=== PATIENT | female | born 1970 | race Caucasian/White ===

== ENCOUNTER 2016-02-11 22:04 | Emergency (ER) | payer SELFPAY ==
[~2016-02-11] VITALS: Wt 59.0 kg
[~2016-02-11 22:04] MED LIST: ABILIFY10 MG PO; ABILIFY2 MG PO; ANAPROX DS550 MG PO; ASPIR LOW81 MG PO; ASPIR-TRIN325 MG PO; ATARAX25 MG PO; CEPHALEXIN500 M1 PO; DAILY VITAMIN1 EAC2 PO; EFFEXOR XR150 M1 PO; ELIMITE 5%60 GM T; KLONOPIN0.5 MG PO; MEDROL DOSEPAK4 MG PO; NORVASC5 MG PO; PHENERGAN W/DM120 ML PO; PLAVIX75 MG PO; PREDNICOT10 MG PO; PREDNICOT20 MG PO; PROAIR HFA0.09 MG/AC INH
== END 2016-02-11 23:54 | disposition home or self-care (01) ==
LOC: ED 22:04
DX: M79.671 Pain in right foot (principal); F17.200 Nicotine dependence, unspecified, uncomplicated; Z86.73 Personal history of transient ischemic attack (TIA), and cerebral infarction without residual deficits; Z79.82 Long term (current) use of aspirin; Z98.890 Other specified postprocedural states

== ENCOUNTER 2016-02-13 12:07 | Emergency (ER) | payer SELFPAY ==
[~2016-02-13] VITALS: Ht 165.1 cm; Wt 56.7 kg
[2016-02-13] MEDS ORDERED: Motrin,Rufen800 MG PO (13:34)
== END 2016-02-13 13:43 | disposition home or self-care (01) ==
LOC: ED 12:07
DX: M72.2 Plantar fascial fibromatosis (principal); F17.200 Nicotine dependence, unspecified, uncomplicated; Z79.82 Long term (current) use of aspirin

== ENCOUNTER 2016-05-08 01:52 | Emergency (ER) | payer MEDICAID ==
[~2016-05-08] VITALS: Ht 165.1 cm; Wt 49.9 kg
[~2016-05-08 01:52] MED LIST changes: +Motrin,Rufen800 MG PO
[2016-05-08] MEDS ORDERED: COUMADIN5 M2 PO (02:00)
[2016-05-08] MEDS ORDERED: PLAVIX75 M1 PO (02:01)
[2016-05-08] MEDS ORDERED: NEURONTIN100 MG PO (02:01)
[2016-05-08] MEDS ORDERED: MIRALAX POWDER255 G1 PO (02:02)
[2016-05-08] MEDS ORDERED: COLACE100 MG PO (02:02)
[2016-05-08 02:21] LABS: BILIRUBIN NEGATIVE (NEGATIVE); BLOOD NEGATIVE (NEGATIVE); CLARITY CLEAR (CLEAR); COLOR YELLOW (YELLOW); GLUCOSE NEGATIVE (NEGATIVE); KETONE NEGATIVE (NEGATIVE); LEUKO ESTERASE TRACE (NEGATIVE); NITRITE NEGATIVE (NEGATIVE); PH 5.5 (5.0-9.0); PROTEIN NEGATIVE (NEGATIVE); SPECIFIC GRAVITY <= 1.005 (1.005-1.030); UROBILINOGEN 0.2 E.U./dl (0.2-1.0)
[2016-05-08 02:28] LABS: BACTERIA 2+; URINE REFLEX COMMENT YES (NO)
[2016-05-08 02:31] LABS: URINE AMPHETAMINES < 1000 (1000ng/ml); URINE BARBITURATES < 200 (200ng/ml); URINE COCAINE < 300 (300ng/ml)
[2016-05-08 02:50] LABS: ALBUMIN 3.8 gm/dl (3.1-4.5); ALKALINE PHOSPHATASE 90 U/L (45-117); BUN 11 mg/dl (7-24); CARBON DIOXIDE 25 mmol/L (21-32); CHLORIDE 110 mmol/L (98-107); EST GLOM FILT AFRICAN AMERICAN > 60 ml/min; GLUCOSE 94 mg/dL (65-99); POTASSIUM 3.7 mmol/L (3.5-5.1); SGOT/AST 16 IU/L (3-35); SGPT/ALT 19 U/L (12-78); SODIUM 144 mmol/L (136-145); TOTAL PROTEIN 7.4 gm/dL (6.4-8.2)
[2016-05-08 02:51] LABS: BILIRUBIN, TOTAL < 0.1 mg/dl (0.2-1.0)
[2016-05-08] MEDS ORDERED: PERCOCET 325 MG1 TA7 PO (03:18)
== END 2016-05-08 03:45 | disposition home or self-care (01) ==
LOC: ED 01:52
PROVIDERS: Emergency Medicine Emergency Medical Services
DX: G89.18 Other acute postprocedural pain (principal); F41.9 Anxiety disorder, unspecified; I77.9 Disorder of arteries and arterioles, unspecified; F17.200 Nicotine dependence, unspecified, uncomplicated; Z79.02 Long term (current) use of antithrombotics/antiplatelets; Z79.899 Other long term (current) drug therapy; Z86.73 Personal history of transient ischemic attack (TIA), and cerebral infarction without residual deficits

== ENCOUNTER 2016-05-16 23:17 | Emergency (ER) | payer OTHER ==
[~2016-05-16] VITALS: Ht 165.1 cm; Wt 50.8 kg
[~2016-05-16 23:17] MED LIST changes: +COLACE100 MG PO; +COUMADIN5 M2 PO; +MIRALAX POWDER255 G1 PO; +NEURONTIN100 MG PO; +PERCOCET 325 MG1 TA7 PO; +PLAVIX75 M1 PO
[2016-05-16] MEDS ORDERED: HYDROXYZINE HCL25 M1 PO (23:31)
[2016-05-17] MEDS ORDERED: RESTORIL15 MG PO (00:14)
== END 2016-05-17 00:29 | disposition home or self-care (01) ==
LOC: ED 23:17
DX: F11.23 Opioid dependence with withdrawal (principal); F41.9 Anxiety disorder, unspecified; F17.200 Nicotine dependence, unspecified, uncomplicated; Z79.02 Long term (current) use of antithrombotics/antiplatelets; Z79.899 Other long term (current) drug therapy; Z86.73 Personal history of transient ischemic attack (TIA), and cerebral infarction without residual deficits

== ENCOUNTER → 2016-07-18 | Outpatient (CLI) | payer OTHER ==
[~2016-07-18] MED LIST changes: +HYDROXYZINE HCL25 M1 PO; +RESTORIL15 MG PO
[2016-07-18 13:50] LABS: BASO # 0.1 10*3/uL (0.0-0.1); BASO % 0.7 % (0.0-1.0); EOS # 0.3 10*3/uL (0.0-0.4); EOS % 3.2 % (1.0-4.0); HEMATOCRIT 43.5 % (37.0-47.0); HEMOGLOBIN 13.6 g/dl (12.0-16.0); IG # 0.1 10*3/uL (0.0-0.1); LYMPH # 3.5 10*3/uL (1.3-4.4); LYMPH % 37.8 % (27.0-41.0); MEAN CELL VOLUME 78.8 fl (81.0-99.0); MEAN CORPUSCULAR HGB 24.6 pg (27.0-31.0); MEAN CORPUSCULAR HGB CONC 31.3 g/dl (33.0-37.0); MEAN PLATELET VOLUME 9.4 fl (9.6-12.3); MONO # 0.8 10*3/uL (0.1-1.0); MONO % 8.7 % (3.0-9.0); NEUT # 4.5 10*3/uL (2.3-7.9); NEUT % 48.4 % (47.0-73.0); PLATELET COUNT AUTOMATED 642 10*3/uL (130-400); RED BLOOD COUNT 5.52 10*6/uL (4.10-5.10); RED CELL DISTRI WIDTH 22.3 % (0-14.5); WHITE BLOOD COUNT 9.3 10*3/uL (4.8-10.8)
== END | disposition home or self-care (01) ==
LOC: LAB 13:33
PROVIDERS: Internal Medicine Hematology & Oncology
DX: D75.9 Disease of blood and blood-forming organs, unspecified (principal)

== ENCOUNTER 2017-02-26 10:17 | Emergency (ER) | payer OTHER ==
[~2017-02-26] VITALS: Ht 165.1 cm; Wt 59.9 kg
[2017-02-26] MEDS ORDERED: PREDNISONE10 MG PO (10:38)
[2017-02-26] MEDS ORDERED: CLARITIN10 MG PO (10:38)
[2017-02-26] MEDS ORDERED: FLONASE ALLERG9.9 ML NAS (10:38)
[2017-02-26] MEDS ORDERED: ROBITUSSIN DM 105 ML PO (10:38)
== END 2017-02-26 12:22 | disposition home or self-care (01) ==
LOC: ED 10:17
DX: J20.9 Acute bronchitis, unspecified (principal); R03.0 Elevated blood-pressure reading, without diagnosis of hypertension; F17.200 Nicotine dependence, unspecified, uncomplicated; Z79.02 Long term (current) use of antithrombotics/antiplatelets; Z79.899 Other long term (current) drug therapy; Z86.73 Personal history of transient ischemic attack (TIA), and cerebral infarction without residual deficits

== ENCOUNTER 2017-05-05 11:16 | Emergency (ER) | payer OTHER ==
[~2017-05-05] VITALS: Ht 165.1 cm; Wt 62.1 kg
[~2017-05-05 11:16] MED LIST changes: +CLARITIN10 MG PO; +FLONASE ALLERG9.9 ML NAS; +PREDNISONE10 MG PO; +ROBITUSSIN DM 105 ML PO
[2017-05-05] MEDS ORDERED: LIPITOR20 MG PO (11:29)
[2017-05-05] MEDS ORDERED: VIIBRYD20 M1 PO (11:30)
[2017-05-05] MEDS ORDERED: CYCLOBENZAPRINE10 MG PO (11:39)
[2017-05-05] MEDS ORDERED: MEDROL DOSEPAK4 MG PO (11:39)
[2017-05-05] MEDS ORDERED: NAPROSYN500 MG PO (11:39)
== END 2017-05-05 11:49 | disposition home or self-care (01) ==
LOC: ED 11:16
DX: S39.012A Strain of muscle, fascia and tendon of lower back, initial encounter (principal); F17.200 Nicotine dependence, unspecified, uncomplicated; Z98.890 Other specified postprocedural states; Z79.899 Other long term (current) drug therapy; Z79.01 Long term (current) use of anticoagulants; X50.1XXA Overexertion from prolonged static or awkward postures, initial encounter; Y93.89 Activity, other specified; Y92.89 Other specified places as the place of occurrence of the external cause; Y99.9 Unspecified external cause status

== ENCOUNTER 2017-07-20 21:07 | Emergency (ER) | payer OTHER ==
[~2017-07-20] VITALS: Ht 165.1 cm; Wt 64.4 kg
[~2017-07-20 21:07] MED LIST changes: +CYCLOBENZAPRINE10 MG PO; +LIPITOR20 MG PO; +NAPROSYN500 MG PO; +VIIBRYD20 M1 PO
[2017-07-20 21:26] LABS: BILIRUBIN NEGATIVE (NEGATIVE); BLOOD NEGATIVE (NEGATIVE); CLARITY SL CLOUDY (CLEAR); COLOR YELLOW (YELLOW); GLUCOSE NEGATIVE (NEGATIVE); KETONE NEGATIVE (NEGATIVE); LEUKO ESTERASE NEGATIVE (NEGATIVE); NITRITE NEGATIVE (NEGATIVE); UROBILINOGEN 0.2 E.U./dl (0.2-1.0)
[2017-07-20 21:43] LABS: BASO # 0.1 10*3/uL (0.0-0.1); BASO % 0.8 % (0.0-1.0); EOS # 0.1 10*3/uL (0.0-0.4); HEMATOCRIT 49.6 % (37.0-47.0); HEMOGLOBIN 16.3 g/dl (12.0-16.0); LYMPH # 1.9 10*3/uL (1.3-4.4); LYMPH % 17.3 % (27.0-41.0); MEAN CELL VOLUME 87.3 fl (81.0-99.0); MEAN CORPUSCULAR HGB 28.7 pg (27.0-31.0); MEAN CORPUSCULAR HGB CONC 32.9 g/dl (33.0-37.0); MEAN PLATELET VOLUME 9.2 fl (9.6-12.3); MONO # 0.9 10*3/uL (0.1-1.0); MONO % 8.1 % (3.0-9.0); NEUT # 8.1 10*3/uL (2.3-7.9); NEUT % 72.4 % (47.0-73.0); PLATELET COUNT AUTOMATED 364 10*3/uL (130-400); RED BLOOD COUNT 5.68 10*6/uL (4.10-5.10); RED CELL DISTRI WIDTH 16.9 % (0-14.5); WHITE BLOOD COUNT 11.2 10*3/uL (4.8-10.8)
[2017-07-20 21:48] LABS: BACTERIA 2+; EPITHELIAL CELLS 51-100; RBC 0-2 rbc/hpf (0-2)
[2017-07-20 21:57] LABS: INTERNATIONAL NORM RATIO 1.1 (2.0-3.5)
[2017-07-20 21:58] LABS: ALBUMIN 3.8 gm/dl (3.1-4.5); ALKALINE PHOSPHATASE 167 U/L (45-117); BUN 6 mg/dl (7-24); CHLORIDE 102 mmol/L (98-107); LIPASE 307 U/L (73-393); POTASSIUM 3.6 mmol/L (3.5-5.1); SGOT/AST 21 IU/L (3-35); SGPT/ALT 21 U/L (12-78); SODIUM 135 mmol/L (136-145)
== END 2017-07-21 01:13 | disposition short-term general hospital (02) ==
LOC: ED 21:07
PROVIDERS: Nurse Practitioner Family
DX: N28.0 Ischemia and infarction of kidney (principal); F41.9 Anxiety disorder, unspecified; F10.10 Alcohol abuse, uncomplicated; Z79.899 Other long term (current) drug therapy

== ENCOUNTER 2018-05-24 09:12 | Emergency (ER) | payer OTHER ==
[~2018-05-24] VITALS: Ht 162.5 cm; Wt 59.0 kg
--- NOTE | ~2018-05-24 | EKG ---
[place], [place] ELECTROCARDIOGRAM REPORT NAME: PERLA BELL UNIT #: [id number] ROOM: DOCTOR: YANICK DRAFT REPORT BIRTHDATE: [birth year] [facility] Test Date: 2018-05-24 Test Time: 09:28:31 Pat Name: PERLA BELL Department: Room: Gender: F Firewall Engineer: : [id number] Requested By: IDA KRAMER Order Number: [id number] Reading MD: Bay Julien MD Measurements Intervals Errol Rate: 91 P: 49 LA: 178 QRS: 57 QRSD: 85 T: 57 QT: 370 QTc: 456 Interpretive Statements Sinus rhythm Baseline wander in lead(s) V6 Nonspecific ST T changes Electronically Signed On 05-25-2018 4:20:26 PDT by Bay Julien MD CM:EKGRPT:ELECTROCARDIOGRAM REPORT [id number] IDA HERNDON DRAFT REPORT IDA KRAMER MD
[2018-05-24 09:40] LABS: BASO # 0.1 10*3/uL (0.0-0.1); BASO % 1.3 % (0.0-1.0); EOS # 0.2 10*3/uL (0.0-0.4); HEMATOCRIT 52.8 % (37.0-47.0); HEMOGLOBIN 17.4 g/dl (12.0-16.0); LYMPH # 1.7 10*3/uL (1.3-4.4); LYMPH % 23.1 % (27.0-41.0); MEAN CELL VOLUME 91.5 fl (81.0-99.0); MEAN CORPUSCULAR HGB 30.2 pg (27.0-31.0); MEAN PLATELET VOLUME 9.3 fl (9.6-12.3); MONO # 0.7 10*3/uL (0.1-1.0); MONO % 9.6 % (3.0-9.0); NEUT # 4.8 10*3/uL (2.3-7.9); NEUT % 63.6 % (47.0-73.0); PLATELET COUNT AUTOMATED 496 10*3/uL (130-400); RED BLOOD COUNT 5.77 10*6/uL (4.10-5.10); RED CELL DISTRI WIDTH 18.2 % (0-14.5); WHITE BLOOD COUNT 7.5 10*3/uL (4.8-10.8)
[2018-05-24 09:49] LABS: ACT PARTIAL THROMBO TIME 22.4 SECONDS (20.8-31.5); INTERNATIONAL NORM RATIO 1.2 (2.0-3.5)
[2018-05-24 09:54] LABS: BILIRUBIN NEGATIVE (NEGATIVE); BLOOD TRACE-INTACT (NEGATIVE); CLARITY CLOUDY (CLEAR); COLOR YELLOW (YELLOW); GLUCOSE NEGATIVE (NEGATIVE); KETONE NEGATIVE (NEGATIVE); LEUKO ESTERASE 3+ (NEGATIVE); NITRITE POSITIVE (NEGATIVE); SPECIFIC GRAVITY <= 1.005 (1.005-1.030); UROBILINOGEN 0.2 E.U./dl (0.2-1.0)
[2018-05-24 10:07] LABS: ALBUMIN 3.7 gm/dl (3.1-4.5); ALKALINE PHOSPHATASE 184 U/L (45-117); BUN 5 mg/dl (7-24); CHLORIDE 105 mmol/L (98-107); CREATININE 0.87 mg/dL (0.55-1.02); POTASSIUM 3.7 mmol/L (3.5-5.1); SGOT/AST 42 IU/L (3-35); SGPT/ALT 38 U/L (12-78); SODIUM 136 mmol/L (136-145); TOTAL PROTEIN 8.3 gm/dL (6.4-8.2)
[2018-05-24 10:09] LABS: BACTERIA 4+; EPITHELIAL CELLS 15-20; WBC TNTC wbc/hpf (0-5)
[2018-05-24 10:18] LABS: ETHYL ALCOHOL < 3.0 mg/dl (<3); TROPONIN I < 0.015 ng/ml (<0.045)
== END 2018-05-24 16:15 | disposition short-term general hospital (02) ==
LOC: ED 09:12
PROVIDERS: Emergency Medicine
DX: R53.1 Weakness (principal); I73.9 Peripheral vascular disease, unspecified; F17.200 Nicotine dependence, unspecified, uncomplicated; Z79.01 Long term (current) use of anticoagulants; Z79.899 Other long term (current) drug therapy; Z86.73 Personal history of transient ischemic attack (TIA), and cerebral infarction without residual deficits

== ENCOUNTER 2019-10-02 13:47 | Emergency (ER) | payer BC ==
[2019-10-02 15:00] LABS: BASO % 0.5 % (0.0-1.0); EOS # 0.1 10*3/uL (0.0-0.4); EOS % 1.1 % (1.0-4.0); HEMATOCRIT 50.1 % (37.0-47.0); LYMPH % 11.6 % (27.0-41.0); MEAN CELL VOLUME 92.1 fl (81.0-99.0); MEAN CORPUSCULAR HGB 30.3 pg (27.0-31.0); MEAN CORPUSCULAR HGB CONC 32.9 g/dl (33.0-37.0); MEAN PLATELET VOLUME 9.8 fl (9.6-12.3); MONO # 0.7 10*3/uL (0.1-1.0); MONO % 7.9 % (3.0-9.0); NEUT # 6.5 10*3/uL (2.3-7.9); NEUT % 78.8 % (47.0-73.0); PLATELET COUNT AUTOMATED 364 10*3/uL (130-400); RED BLOOD COUNT 5.44 10*6/uL (4.10-5.10); RED CELL DISTRI WIDTH 15.1 % (0-14.5); WHITE BLOOD COUNT 8.3 10*3/uL (4.8-10.8)
[2019-10-02 15:15] LABS: ALBUMIN 3.5 gm/dl (3.1-4.5); ALKALINE PHOSPHATASE 134 U/L (45-117); BUN 17 mg/dl (7-24); CHLORIDE 106 mmol/L (98-107); CREATININE 0.94 mg/dL (0.55-1.02); POTASSIUM 4.1 mmol/L (3.5-5.1); SGOT/AST 25 IU/L (3-35); SGPT/ALT 25 U/L (12-78); SODIUM 135 mmol/L (136-145); TOTAL PROTEIN 7.9 gm/dL (6.4-8.2)
[2019-10-02] MEDS ORDERED: PROVENTIL HFA6.7 GM INH (16:01)
== END 2019-10-02 16:04 | disposition home or self-care (01) ==
LOC: ED 13:47
PROVIDERS: Physician Assistant
DX: J40 Bronchitis, not specified as acute or chronic (principal); Z20.828 Contact with and (suspected) exposure to other viral communicable diseases; Z79.899 Other long term (current) drug therapy; Z79.01 Long term (current) use of anticoagulants

== ENCOUNTER 2019-11-30 14:34 | Emergency (ER) | payer BC ==
[~2019-11-30] VITALS: Ht 165.1 cm; Wt 69.4 kg
== END 2019-11-30 17:45 | disposition home or self-care (01) ==
LOC: ED 14:34
DX: S90.121A Contusion of right lesser toe(s) without damage to nail, initial encounter (principal); S91.104A Unspecified open wound of right lesser toe(s) without damage to nail, initial encounter; Z79.899 Other long term (current) drug therapy; Z79.01 Long term (current) use of anticoagulants; X58.XXXA Exposure to other specified factors, initial encounter; Y93.89 Activity, other specified; Y92.89 Other specified places as the place of occurrence of the external cause; Y99.8 Other external cause status

== ENCOUNTER → 2020-06-06 | Outpatient (CLI) | payer OTHER ==
[~2020-06-06] MED LIST changes: +DOXYCYCLINE100 M3 PO; +PROVENTIL HFA6.7 GM INH
[2020-06-06 14:02] LABS: HEMATOCRIT 53.4 % (37.0-47.0); MEAN CELL VOLUME 93.7 fl (81.0-99.0); MEAN CORPUSCULAR HGB 31.6 pg (27.0-31.0); MEAN CORPUSCULAR HGB CONC 33.7 g/dl (33.0-37.0); MEAN PLATELET VOLUME 9.5 fl (9.6-12.3); PLATELET COUNT AUTOMATED 432 10*3/uL (130-400); RETICULOCYTE % 1.51 % (0.50-2.50); WHITE BLOOD COUNT 7.2 10*3/uL (4.8-10.8)
[2020-06-06 14:03] LABS: BILIRUBIN Negative (Negative); BLOOD Negative (Negative); CLARITY Clear (Clear); COLOR Yellow (Yellow); GLUCOSE Negative (Negative); KETONE Negative (Negative); LEUKO ESTERASE 2+ (Negative); NITRITE Positive (Negative); PH 5.5 (4.5-8.0); UROBILINOGEN 0.2 E.U./dl (0.0-1.0)
[2020-06-06 14:29] LABS: TOTAL CELLS COUNTED 100 #CELLS
[2020-06-06 14:32] LABS: ALBUMIN 3.6 gm/dl (3.1-4.5); ALKALINE PHOSPHATASE 151 U/L (45-117); BUN 8 mg/dl (7-24); CHLORIDE 104 mmol/L (98-107); CHOLESTEROL 279 mg/dL (<200); CREATININE 0.85 mg/dL (0.55-1.02); GAMMA GLUTAMYL TRANSPEPTIDASE 80 U/L (5-55); HDL CHOLESTEROL 36 mg/dl (40-60); IRON 93 ug/dL (50-170); LDL CHOLESTEROL 200 mg/dL (9-159); POTASSIUM 4.3 mmol/L (3.5-5.1); SGOT/AST 27 IU/L (3-35); SGPT/ALT 38 U/L (12-78); SODIUM 136 mmol/L (136-145); T3 UPTAKE 32 % (31-39); THYROXINE (T4) TOTAL 5.5 ug/dl (4.8-13.9); TOTAL IRON BINDING CAPACITY 424 ug/dl (250-450); TOTAL PROTEIN 7.6 gm/dL (6.4-8.2); TRIGLYCERIDES 217 mg/dl (<150); URIC ACID 4.5 mg/dL (2.6-6.0); VLDL CHOLESTEROL 43 mg/dL (6-40)
[2020-06-06 14:33] LABS: PLATELET SUFFICIENCY HIGH (NORMAL)
[2020-06-06 14:44] LABS: BACTERIA 3+; RBC 0-2 rbc/hpf (0-2); WBC 51-100 wbc/hpf (0-5)
[2020-06-06 14:59] LABS: FERRITIN 20.1 ng/mL (10.0-291.0); VITAMIN D, 25-HYDROXY 19.3 ng/mL (30-100)
[2020-06-07 05:06] LABS: TOTAL PROTEIN, SERUM 7.3 g/dL (6.0-8.5)
[2020-06-07 08:08] LABS: RHEUMATOID ARTHRITIS FACTOR 12.9 IU/mL (0.0-13.9)
[2020-06-07 14:08] LABS: ALBUMIN 3.6 g/dL (2.9-4.4); ALPHA-1-GLOBULIN 0.2 g/dL (0.0-0.4); ALPHA-2-GLOBULIN 0.8 g/dL (0.4-1.0); BETA GLOBULIN 1.3 g/dL (0.7-1.3); GAMMA GLOBULIN 1.3 g/dL (0.4-1.8); GLOBULIN, TOTAL 3.7 g/dL (2.2-3.9); M-SPIKE Not Observed g/dL (Not Observed)
[2020-06-07 17:06] LABS: ANTI-DSDNA ANTIBODIES <1 IU/mL (0-9)
== END | disposition home or self-care (01) ==
LOC: LAB 13:24
PROVIDERS: ATTEND Family Medicine
DX: E55.9 Vitamin D deficiency, unspecified (principal); E78.5 Hyperlipidemia, unspecified; R53.83 Other fatigue; R79.89 Other specified abnormal findings of blood chemistry; R74.8 Abnormal levels of other serum enzymes

== ENCOUNTER → 2020-06-14 | Outpatient (CLI) | payer OTHER | END | disposition home or self-care (01) | LOC: US 08:44 | PROVIDERS: ATTEND Family Medicine | DX: E04.2 Nontoxic multinodular goiter (principal) ==

== ENCOUNTER → 2021-02-26 | Outpatient (CLI) | payer OTHER | END | disposition home or self-care (01) | LOC: COVID19 15:16 | PROVIDERS: ATTEND Internal Medicine | DX: Z20.822 Contact with and (suspected) exposure to COVID-19 (principal) ==

== ENCOUNTER → 2022-05-12 | Outpatient (CLI) | payer MEDICAID ==
[2022-05-12 12:00] LABS: BILIRUBIN Negative (Negative); BLOOD Negative (Negative); CLARITY Clear (Clear); COLOR Yellow (Yellow); GLUCOSE Negative (Negative); KETONE Negative (Negative); LEUKO ESTERASE 2+ (Negative); NITRITE Positive (Negative)
[2022-05-12 12:00] LABS: BASO # 0.1 10*3/uL (0.0-0.1); EOS # 0.2 10*3/uL (0.0-0.4); HEMATOCRIT 53.2 % (37.0-47.0); LYMPH # 1.9 10*3/uL (1.3-4.4); LYMPH % 25.3 % (27.0-41.0); MEAN CELL VOLUME 104.5 fl (81.0-99.0); MEAN CORPUSCULAR HGB 35.6 pg (27.0-31.0); MEAN PLATELET VOLUME 9.5 fl (9.6-12.3); MONO # 0.6 10*3/uL (0.1-1.0); MONO % 8.1 % (3.0-9.0); NEUT # 4.8 10*3/uL (2.3-7.9); NEUT % 62.1 % (47.0-73.0); PLATELET COUNT AUTOMATED 371 10*3/uL (130-400); RED BLOOD COUNT 5.09 10*6/uL (4.10-5.10); RED CELL DISTRI WIDTH 14.2 % (0-14.5); RETICULOCYTE % 1.57 % (0.50-2.50); WHITE BLOOD COUNT 7.7 10*3/uL (4.8-10.8)
[2022-05-12 12:17] LABS: BACTERIA 4+; WBC 41-50 wbc/hpf (0-5)
[2022-05-12 12:18] LABS: YEAST TRACE
[2022-05-12 12:55] LABS: ALKALINE PHOSPHATASE 133 U/L (46-116); BUN 5 mg/dl (9-23); CHLORIDE 104 mmol/L (98-107); CHOLESTEROL 236 mg/dL (<200); GAMMA GLUTAMYL TRANSPEPTIDASE 134 U/L (0-73); LDL CHOLESTEROL 168 mg/dL (9-159); POTASSIUM 4.6 mmol/L (3.4-5.1); SGPT/ALT 64 U/L (10-49); THYROID STIM HORMONE (HS) 0.975 uIU/ml (0.550-4.780); TOTAL PROTEIN 7.3 gm/dL (6.0-8.0); TRIGLYCERIDES 149 mg/dl (<150)
== END | disposition home or self-care (01) ==
LOC: LAB 11:29
PROVIDERS: ATTEND Family Medicine
DX: R79.89 Other specified abnormal findings of blood chemistry (principal); R53.83 Other fatigue; E55.9 Vitamin D deficiency, unspecified

== ENCOUNTER 2022-05-16 12:10 | Emergency (ER) | payer MEDICAID ==
[~2022-05-16] VITALS: Wt 64.0 kg
[2022-05-16 12:57] LABS: BILIRUBIN Negative (Negative); BLOOD Negative (Negative); CLARITY Cloudy (Clear); COLOR Yellow (Yellow); GLUCOSE Negative (Negative); KETONE Negative (Negative); LEUKO ESTERASE 2+ (Negative); NITRITE Positive (Negative); PH 5.5 (4.5-8.0); UROBILINOGEN 0.2 E.U./dl (0.0-1.0)
[2022-05-16 13:08] LABS: BACTERIA 4+; MUCOUS 1+; WBC 51-100 wbc/hpf (0-5)
[2022-05-16] MEDS ORDERED: MEDROL DOSEPAK4 MG PO (13:21)
[2022-05-16] MEDS ORDERED: SEPTDS PO (13:21)
== END 2022-05-16 13:36 | disposition home or self-care (01) ==
LOC: ED 12:10
PROVIDERS: Physician Assistant
DX: N39.0 Urinary tract infection, site not specified (principal); M54.50 Low back pain, unspecified; Z79.899 Other long term (current) drug therapy

== ENCOUNTER → 2022-07-24 | Outpatient (CLI) | payer MEDICAID ==
[~2022-07-24] MED LIST changes: +SEPTDS PO
== END | disposition home or self-care (01) ==
LOC: US 06-26 00:59
PROVIDERS: ATTEND Family Medicine
DX: K76.0 Fatty (change of) liver, not elsewhere classified (principal)

== ENCOUNTER 2023-03-04 10:08 | Emergency (ER) | payer MEDICARE ==
[~2023-03-04] VITALS: Ht 165.1 cm; Wt 64.9 kg
[2023-03-04] MEDS ORDERED: Motrin,Rufen800 MG PO (10:49)
[2023-03-04] MEDS ORDERED: CLEOCIN HCL150 MG PO (10:49)
== END 2023-03-04 10:53 | disposition home or self-care (01) ==
LOC: ED 10:08
DX: K08.89 Other specified disorders of teeth and supporting structures (principal); F32.A Depression, unspecified; F41.9 Anxiety disorder, unspecified; Z98.890 Other specified postprocedural states

== ENCOUNTER 2023-09-12 11:08 | Inpatient (IN) | payer MEDICARE ==
[2023-09-12] VITALS (12 sets, daily range): BP systolic 68–118; BP diastolic 40–66
[~2023-09-12] VITALS: Ht 165.1 cm; Wt 54.5 kg
[~2023-09-12 11:08] MED LIST changes: +CLEOCIN HCL150 MG PO
[2023-09-12] MEDS ORDERED: ELIQUIS5 M1 PO (11:31)
[2023-09-12] MEDS ORDERED: REXULTI3 MG PO (11:32)
[2023-09-12] MEDS ORDERED: NATURE'S BLEND F1 MG PO (11:33)
[2023-09-12] MEDS ORDERED: VITAMIN D3 COM1 EACH PO (11:33)
[2023-09-12] MEDS ORDERED: SODIUM CHLORIDE 0.9% 1,000 ML IV SCH (11:35)
[2023-09-12 12:22] LABS: BASO # 0.1 10*3/uL (0.0-0.1); BASO % 0.5 % (0.0-1.0); EOS # 0.2 10*3/uL (0.0-0.4); EOS % 1.5 % (1.0-4.0); HEMATOCRIT 35.4 % (37.0-47.0); LYMPH # 1.6 10*3/uL (1.3-4.4); LYMPH % 13.2 % (27.0-41.0); MEAN CORPUSCULAR HGB 33.7 pg (27.0-31.0); MEAN CORPUSCULAR HGB CONC 34.7 g/dl (33.0-37.0); MEAN PLATELET VOLUME 9.5 fl (9.6-12.3); MONO # 0.7 10*3/uL (0.1-1.0); MONO % 5.5 % (3.0-9.0); NEUT # 9.7 10*3/uL (2.3-7.9); NEUT % 78.4 % (47.0-73.0); PLATELET COUNT AUTOMATED 518 10*3/uL (130-400); RED BLOOD COUNT 3.65 10*6/uL (4.10-5.10); RED CELL DISTRI WIDTH 13.3 % (0-14.5); WHITE BLOOD COUNT 12.4 10*3/uL (4.8-10.8)
[2023-09-12] MEDS ORDERED: LISINOPRIL10 M1 PO (12:31)
[2023-09-12] MEDS ORDERED: PROPRANOLOL HCL10 MG PO (12:31)
[2023-09-12 13:00] LABS: POTASSIUM 3.2 mmol/L (3.4-5.1); TOTAL PROTEIN 6.9 gm/dL (6.0-8.0)
[2023-09-12] MEDS ORDERED: POTASSIUM CHLORIDE 20 MEQ TAB PO ONE (13:20)
[2023-09-12] MEDS ORDERED: Ceftriaxone Sodium 1 GM/10 ML SYR IV ONE (13:40)
[2023-09-12 13:55] LABS: BILIRUBIN Negative (Negative); BLOOD Negative (Negative); CLARITY Clear (Clear); COLOR Dark Yellow (Yellow); GLUCOSE Negative (Negative); KETONE Negative (Negative); LEUKO ESTERASE 1+ (Negative); NITRITE Negative (Negative)
[2023-09-12 14:02] LABS: URINE AMPHETAMINES Negative (1000ng/ml); URINE BARBITURATES Negative (200ng/ml); URINE BENZODIAZEPINES Negative (200ng/ml); URINE CANNABINOIDS (THC) Negative (50ng/ml); URINE COCAINE Negative (300ng/ml); URINE METHADONE Negative (300ng/ml); URINE OPIATES Negative (300ng/ml); URINE PHENCYCLIDINE Negative (25ng/ml)
[2023-09-12 14:08] LABS: YEAST 4+
[2023-09-12] MEDS ORDERED: Acetaminophen/Hydrocodone 5 MG/325 MG TABLET PO PRN (14:40)
[2023-09-12] MEDS ORDERED: Ondansetron Hydrochloride 4 MG/2 ML VIAL IV PRN (14:40)
[2023-09-12] MEDS ORDERED: MORPHINE Sulfate 2 MG/ML SYR IV PRN (14:40)
[2023-09-12] MEDS ORDERED: Magnesium Hydroxide 30 ML UDC PO PRN (14:40)
[2023-09-12] MEDS ORDERED: BISACODYL 5 MG TAB PO PRN (14:40)
[2023-09-12 17:21] LABS: BUN 13 mg/dl (9-23); CHLORIDE 102 mmol/L (98-107); POTASSIUM 3.5 mmol/L (3.4-5.1)
[2023-09-12] MEDS ORDERED: clonAZEPAM 0.5 MG TAB PO PRN (18:45)
[2023-09-12] MEDS ORDERED: Nicotine 7 MG PATCH T SCH (19:00)
[2023-09-12 19:36] LABS: BUN 13 mg/dl (9-23); CHLORIDE 102 mmol/L (98-107); POTASSIUM 3.3 mmol/L (3.4-5.1)
[2023-09-12] MEDS ORDERED: APIXABAN 5 MG TAB PO SCH (22:00)
[2023-09-12] MEDS ORDERED: Propranolol Hydrochloride 10 MG TAB PO SCH (22:00)
[2023-09-12] MEDS ORDERED: BREXPIPRAZOLE 1 MG TABLET PO SCH (22:00)
[2023-09-12] MEDS ORDERED: DEXTROSE 5% IV ONE (22:10)
[2023-09-13] VITALS: BP 86/52
[2023-09-13 00:54] LABS: BUN 13 mg/dl (9-23); CHLORIDE 101 mmol/L (98-107); POTASSIUM 3.4 mmol/L (3.4-5.1)
[2023-09-13 06:32] LABS: BASO # 0.1 10*3/uL (0.0-0.1); BASO % 0.7 % (0.0-1.0); EOS # 0.2 10*3/uL (0.0-0.4); EOS % 2.3 % (1.0-4.0); HEMATOCRIT 33.5 % (37.0-47.0); LYMPH # 1.5 10*3/uL (1.3-4.4); LYMPH % 17.4 % (27.0-41.0); MEAN CELL VOLUME 98.5 fl (81.0-99.0); MEAN CORPUSCULAR HGB 33.2 pg (27.0-31.0); MEAN CORPUSCULAR HGB CONC 33.7 g/dl (33.0-37.0); MEAN PLATELET VOLUME 9.8 fl (9.6-12.3); MONO # 0.5 10*3/uL (0.1-1.0); MONO % 5.2 % (3.0-9.0); NEUT # 6.4 10*3/uL (2.3-7.9); NEUT % 73.3 % (47.0-73.0); PLATELET COUNT AUTOMATED 501 10*3/uL (130-400); RED CELL DISTRI WIDTH 13.5 % (0-14.5); WHITE BLOOD COUNT 8.7 10*3/uL (4.8-10.8)
[2023-09-13 06:56] LABS: BUN 10 mg/dl (9-23); CHLORIDE 99 mmol/L (98-107); POTASSIUM 3.3 mmol/L (3.4-5.1)
[2023-09-13] MEDS ORDERED: FOAM BANDAGE 5X5 T ONE ×2 (07:02→17:39)
[2023-09-13 08:00] VITALS: BP 98/65
[2023-09-13] MEDS ORDERED: Enoxaparin Sodium 40 MG/0.4 ML SYR SC SCH (10:00)
[2023-09-13] MEDS ORDERED: ATORVASTATIN CALCIUM 20 MG TAB PO SCH (10:00)
[2023-09-13] MEDS ORDERED: FOLIC ACID 1 MG TAB PO SCH (10:00)
[2023-09-13] MEDS ORDERED: BREXPIPRAZOLE 1 MG TABLET PO SCH (10:00)
[2023-09-13] MEDS ORDERED: Clopidogrel Hydrogen Sulfate 75 MG TAB PO SCH (10:00)
[2023-09-13 12:00] VITALS: BP 113/71
[2023-09-13 12:05] LABS: BUN 10 mg/dl (9-23); CHLORIDE 98 mmol/L (98-107); POTASSIUM 3.8 mmol/L (3.4-5.1)
[2023-09-13] MEDS ORDERED: Ceftriaxone Sodium 10 ML IV SCH (14:00)
[2023-09-13 16:00] VITALS: BP 101/65
[2023-09-13] MEDS ORDERED: OMEPRAZOLE MAGN20 MG PO (16:00)
[2023-09-13] MEDS ORDERED: CALCIUM (TUMS) 500MG PO PRN (16:55)
[2023-09-13] MEDS ORDERED: CEFDINIR 300 MG CAP PO SCH (16:55)
[2023-09-13] MEDS ORDERED: LEPTOSPERMUM HONEY 0.5 OZ TUBE T ONE (17:39)
[2023-09-13 20:00] VITALS: BP 106/81
[2023-09-13] MEDS ORDERED: OMEPRAZOLE 20 MG CAP PO SCH (20:40)
[2023-09-14] VITALS: BP 99/56
[2023-09-14 06:15] LABS: BUN 7 mg/dl (9-23); CHLORIDE 100 mmol/L (98-107); POTASSIUM 3.5 mmol/L (3.4-5.1)
[2023-09-14] MEDS ORDERED: OMEPRAZOLE 20 MG CAP PO SCH (07:30)
[2023-09-14 08:00] VITALS: BP 100/63
[2023-09-14 12:00] VITALS: BP 100/58
[2023-09-14 16:00] VITALS: BP 98/60
[2023-09-14 20:00] VITALS: BP 93/61
[2023-09-15] VITALS: BP 98/65
[2023-09-15 08:00] VITALS: BP 109/65
[2023-09-15 08:04] LABS: CHLORIDE 102 mmol/L (98-107); POTASSIUM 3.5 mmol/L (3.4-5.1)
[2023-09-15] MEDS ORDERED: CEFDINIR300 MG PO (08:06)
[2023-09-15 08:15] LABS: BUN < 5 mg/dl (9-23)
[2023-09-15 12:00] VITALS: BP 110/62
== END 2023-09-15 13:00 | disposition home or self-care (01) | DRG 871 ==
LOC: ED 11:08 → 4E 14:30 → EDHOLD 14:30 → 4E 15:00
PROVIDERS: Internal Medicine Nephrology; Nurse Practitioner Family; Registered Nurse; Student in an Organized Health Care Education/Training Program; ADMIT Student in an Organized Health Care Education/Training Program; ATTEND Student in an Organized Health Care Education/Training Program
DX: A41.9 Sepsis, unspecified organism (principal); N17.0 Acute kidney failure with tubular necrosis; N39.0 Urinary tract infection, site not specified; E87.1 Hypo-osmolality and hyponatremia; E87.20 Acidosis, unspecified; R65.20 Severe sepsis without septic shock; E87.6 Hypokalemia; D75.839 Thrombocytosis, unspecified; F41.9 Anxiety disorder, unspecified; R29.6 Repeated falls; F17.210 Nicotine dependence, cigarettes, uncomplicated; B96.20 Unspecified Escherichia coli [E. coli] as the cause of diseases classified elsewhere; Z71.6 Tobacco abuse counseling; Z86.73 Personal history of transient ischemic attack (TIA), and cerebral infarction without residual deficits; Z82.5 Family history of asthma and other chronic lower respiratory diseases; Z82.49 Family history of ischemic heart disease and other diseases of the circulatory system

== ENCOUNTER 2023-11-28 07:30 | Inpatient (IN) | payer MEDICARE, OTHER ==
[2023-11-28] VITALS (11 sets, daily range): BP systolic 67–144; BP diastolic 39–108
[~2023-11-28] VITALS: Ht 165.1 cm; Wt 49.6 kg
[~2023-11-28 07:30] MED LIST changes: +ATORVASTATIN CA40 M1 PO; +CEFDINIR300 MG PO; +CLONAZEPAM0.5 M2 PO; +ELIQUIS5 M1 PO; +HYDROCHLOROTH12.5 M2 PO; +IRON325 M1 PO; +LISINOPRIL10 M1 PO; +MACROBID100 M1 PO; +NATURE'S BLEND F1 MG PO; +OMEPRAZOLE MAGN20 MG PO; +PROPRANOLOL HCL10 MG PO; +REXULTI3 MG PO; +VITAMIN D3 COM1 EACH PO; +ZESTRIL10 MG PO
[2023-11-28] MEDS ORDERED: PREGABALIN100 MG PO (08:18)
[2023-11-28] MEDS ORDERED: BENZTROPINE MESY1 MG PO (08:19)
[2023-11-28 08:47] LABS: BASO # 0.1 10*3/uL (0.0-0.1); BASO % 0.5 % (0.0-1.0); EOS # 0.1 10*3/uL (0.0-0.4); HEMATOCRIT 33.7 % (37.0-47.0); LYMPH # 2.2 10*3/uL (1.3-4.4); LYMPH % 21.7 % (27.0-41.0); MEAN CELL VOLUME 88.7 fl (81.0-99.0); MEAN CORPUSCULAR HGB 28.9 pg (27.0-31.0); MEAN CORPUSCULAR HGB CONC 32.6 g/dl (33.0-37.0); MEAN PLATELET VOLUME 10.8 fl (9.6-12.3); MONO # 1.1 10*3/uL (0.1-1.0); MONO % 10.7 % (3.0-9.0); NEUT # 6.6 10*3/uL (2.3-7.9); NEUT % 65.9 % (47.0-73.0); PLATELET COUNT AUTOMATED 415 10*3/uL (130-400); RED CELL DISTRI WIDTH 13.4 % (0-14.5); WHITE BLOOD COUNT 10.1 10*3/uL (4.8-10.8)
[2023-11-28] MEDS ORDERED: SODIUM CHLORIDE 0.9% 1,000 ML IV ONE ×2 (09:00→11:10)
[2023-11-28 09:14] LABS: ALKALINE PHOSPHATASE 134 U/L (46-116); BUN 28 mg/dl (9-23); CHLORIDE 91 mmol/L (98-107); POTASSIUM 3.2 mmol/L (3.4-5.1); SGPT/ALT 7 U/L (5-49); TOTAL PROTEIN 5.9 gm/dL (6.0-8.0)
[2023-11-28 09:19] LABS: ETHYL ALCOHOL < 3.0 mg/dl (<3)
[2023-11-28] MEDS ORDERED: POTASSIUM CHLORIDE 20 MEQ TAB PO ONE (09:35)
[2023-11-28 12:33] LABS: BILIRUBIN Negative (Negative); BLOOD Trace-Intact (Negative); CLARITY Turbid (Clear); COLOR Yellow (Yellow); GLUCOSE Negative (Negative); KETONE Negative (Negative); LEUKO ESTERASE 3+ (Negative); NITRITE Negative (Negative); PH 7.5 (4.5-8.0); UROBILINOGEN 0.2 E.U./dl (0.0-1.0)
[2023-11-28 12:52] LABS: BACTERIA 4+; EPITHELIAL CELLS TNTC; RBC 0-2 rbc/hpf (0-2); WBC 31-40 wbc/hpf (0-5)
[2023-11-28 12:57] LABS: URINE AMPHETAMINES Negative (1000ng/ml); URINE BARBITURATES Negative (200ng/ml); URINE BENZODIAZEPINES Negative (200ng/ml); URINE CANNABINOIDS (THC) Positive (50ng/ml); URINE COCAINE Negative (300ng/ml); URINE METHADONE Negative (300ng/ml); URINE OPIATES Negative (300ng/ml); URINE PHENCYCLIDINE Negative (25ng/ml)
[2023-11-28] MEDS ORDERED: ACETAMINOPHEN 650 MG SUPP R PRN (14:35)
[2023-11-28] MEDS ORDERED: Ondansetron Hydrochloride 4 MG/2 ML VIAL IV PRN (14:35)
[2023-11-28] MEDS ORDERED: ACETAMINOPHEN 325 MG TAB PO PRN (14:35)
[2023-11-28 15:21] LABS: POTASSIUM 3.5 mmol/L (3.4-5.1)
[2023-11-28] MEDS ORDERED: Ceftriaxone Sodium 1 GM in SYRINGE INFUSION 10 ML IV SCH (16:00)
[2023-11-28] MEDS ORDERED: LORazepam 1 MG TAB PO SCH (16:00)
[2023-11-28] MEDS ORDERED: REXULTI1 MG PO (17:50)
[2023-11-28] MEDS ORDERED: APIXABAN 5 MG TAB PO SCH (18:00)
[2023-11-28 20:08] LABS: BUN 19 mg/dl (9-23); CHLORIDE 98 mmol/L (98-107)
[2023-11-29 06:34] LABS: BASO % 0.6 % (0.0-1.0); EOS # 0.1 10*3/uL (0.0-0.4); LYMPH % 14.7 % (27.0-41.0); MEAN CELL VOLUME 87.3 fl (81.0-99.0); MEAN CORPUSCULAR HGB 28.5 pg (27.0-31.0); MEAN CORPUSCULAR HGB CONC 32.7 g/dl (33.0-37.0); MEAN PLATELET VOLUME 10.6 fl (9.6-12.3); MONO # 0.5 10*3/uL (0.1-1.0); MONO % 6.6 % (3.0-9.0); NEUT # 5.2 10*3/uL (2.3-7.9); NEUT % 76.8 % (47.0-73.0); PLATELET COUNT AUTOMATED 423 10*3/uL (130-400); RED BLOOD COUNT 4.24 10*6/uL (4.10-5.10); RED CELL DISTRI WIDTH 13.5 % (0-14.5); WHITE BLOOD COUNT 6.8 10*3/uL (4.8-10.8)
[2023-11-29 07:15] LABS: ALKALINE PHOSPHATASE 132 U/L (46-116); BUN 15 mg/dl (9-23); CHLORIDE 101 mmol/L (98-107); POTASSIUM 3.7 mmol/L (3.4-5.1); SGPT/ALT 8 U/L (5-49); TOTAL PROTEIN 6.1 gm/dL (6.0-8.0)
[2023-11-29 08:00] VITALS: BP 94/68
[2023-11-29] MEDS ORDERED: LORazepam 2 MG/ML VIAL IV PRN (11:05)
[2023-11-29 12:00] VITALS: BP 137/90
[2023-11-29 16:00] VITALS: BP 129/93
[2023-11-29] MEDS ORDERED: LORazepam 1 MG TAB PO SCH (18:00)
[2023-11-29 20:00] VITALS: BP 124/87
[2023-11-29] MEDS ORDERED: BENZTROPINE MESYLATE 1 MG TAB PO SCH (22:00)
[2023-11-30] VITALS: BP 133/73
[2023-11-30 06:30] LABS: BASO % 0.7 % (0.0-1.0); EOS # 0.2 10*3/uL (0.0-0.4); LYMPH # 1.5 10*3/uL (1.3-4.4); LYMPH % 24.5 % (27.0-41.0); MEAN CELL VOLUME 89.2 fl (81.0-99.0); MEAN CORPUSCULAR HGB 28.6 pg (27.0-31.0); MEAN CORPUSCULAR HGB CONC 32.1 g/dl (33.0-37.0); MEAN PLATELET VOLUME 9.8 fl (9.6-12.3); MONO # 0.6 10*3/uL (0.1-1.0); MONO % 10.6 % (3.0-9.0); NEUT # 3.6 10*3/uL (2.3-7.9); NEUT % 59.7 % (47.0-73.0); PLATELET COUNT AUTOMATED 412 10*3/uL (130-400); RED BLOOD COUNT 3.81 10*6/uL (4.10-5.10); RED CELL DISTRI WIDTH 13.4 % (0-14.5)
[2023-11-30 07:14] LABS: ALKALINE PHOSPHATASE 121 U/L (46-116); BUN 9 mg/dl (9-23); CHLORIDE 102 mmol/L (98-107); SGPT/ALT 8 U/L (5-49); TOTAL PROTEIN 5.6 gm/dL (6.0-8.0)
[2023-11-30 08:00] VITALS: BP 97/60
[2023-11-30] MEDS ORDERED: FOLIC ACID 1 MG TAB PO SCH (10:00)
[2023-11-30] MEDS ORDERED: MULTIVITAMIN 1 TAB TAB PO SCH (10:00)
[2023-11-30] MEDS ORDERED: PREGABALIN 50 MG CAP PO SCH (10:00)
[2023-11-30] MEDS ORDERED: Thiamine 100 MG TAB PO SCH (10:00)
[2023-11-30 12:00] VITALS: BP 108/68
[2023-11-30] MEDS ORDERED: POTASSIUM CHLORIDE 20 MEQ TAB PO ONE ×2 (13:35→14:35)
[2023-11-30] MEDS ORDERED: SODIUM CHLORIDE 0.9% 1,000 ML IV ONE (14:30)
[2023-11-30 16:00] VITALS: BP 132/99
[2023-11-30] MEDS ORDERED: Meropenem 50 ML IV SCH (17:00)
[2023-11-30] MEDS ORDERED: Meropenem 1 GM in SODIUM CHLORIDE 0.9% 100 ML IV SCH (17:00)
[2023-11-30] MEDS ORDERED: VANCOMYCIN/WATER FOR INJ (PEG) 150 ML IV SCH (18:00)
[2023-11-30 20:00] VITALS: BP 124/76
[2023-11-30] MEDS ORDERED: LORazepam 1 MG TAB PO PRN (20:00)
[2023-11-30] MEDS ORDERED: Ciprofloxacin Hydrochloride 500 MG TAB PO SCH (22:00)
[2023-12-01] VITALS: BP 113/67
[2023-12-01] MEDS ORDERED: ATORVASTATIN CA40 M1 PO (05:20)
[2023-12-01] MEDS ORDERED: ASPIRIN ADULT L81 M1 PO (05:25)
[2023-12-01] MEDS ORDERED: VITAMIN D3125 MC1 PO (05:26)
[2023-12-01] MEDS ORDERED: clonAZEPAM 0.5 MG TAB PO PRN (05:35)
[2023-12-01 06:56] LABS: ALKALINE PHOSPHATASE 122 U/L (46-116); BUN 7 mg/dl (9-23); CHLORIDE 104 mmol/L (98-107); SGPT/ALT 8 U/L (5-49); TOTAL PROTEIN 5.6 gm/dL (6.0-8.0)
[2023-12-01 06:57] LABS: POTASSIUM 4.2 mmol/L (3.4-5.1)
[2023-12-01 08:00] VITALS: BP 110/60
[2023-12-01 12:00] VITALS: BP 117/65
[2023-12-01 16:00] VITALS: BP 140/80
[2023-12-01 20:00] VITALS: BP 124/75
[2023-12-01] MEDS ORDERED: IBUPROFEN 400 MG TAB PO ONE (21:20)
[2023-12-02] VITALS: BP 121/88
[2023-12-02 05:58] LABS: EOS # 0.4 10*3/uL (0.0-0.4); EOS % 8.9 % (1.0-4.0); HEMATOCRIT 33.5 % (37.0-47.0); LYMPH # 1.6 10*3/uL (1.3-4.4); LYMPH % 38.3 % (27.0-41.0); MEAN CELL VOLUME 91.3 fl (81.0-99.0); MEAN CORPUSCULAR HGB 28.3 pg (27.0-31.0); MEAN PLATELET VOLUME 9.7 fl (9.6-12.3); MONO # 0.6 10*3/uL (0.1-1.0); MONO % 13.7 % (3.0-9.0); NEUT # 1.5 10*3/uL (2.3-7.9); NEUT % 37.1 % (47.0-73.0); PLATELET COUNT AUTOMATED 388 10*3/uL (130-400); RED BLOOD COUNT 3.67 10*6/uL (4.10-5.10); RED CELL DISTRI WIDTH 13.5 % (0-14.5); WHITE BLOOD COUNT 4.2 10*3/uL (4.8-10.8)
[2023-12-02 06:11] LABS: BUN 6 mg/dl (9-23); CHLORIDE 105 mmol/L (98-107); POTASSIUM 3.8 mmol/L (3.4-5.1)
[2023-12-02 08:00] VITALS: BP 116/76
[2023-12-02] MEDS ORDERED: Acetaminophen/Hydrocodone 5 MG/325 MG TABLET PO ONE (09:10)
[2023-12-02] MEDS ORDERED: Vancomycin Hydrochloride 1,000 MG in SODIUM CHLORIDE 0.9% 250 ML IV SCH (10:00)
[2023-12-02] MEDS ORDERED: OMEPRAZOLE 20 MG CAP PO SCH (10:00)
[2023-12-02] MEDS ORDERED: Clopidogrel Hydrogen Sulfate 75 MG TAB PO SCH (10:00)
[2023-12-02 12:00] VITALS: BP 95/61
[2023-12-02 16:00] VITALS: BP 102/61
[2023-12-02] MEDS ORDERED: Acetaminophen/Hydrocodone 5 MG/325 MG TABLET PO PRN (18:05)
[2023-12-02 20:00] VITALS: BP 112/75
[2023-12-02] MEDS ORDERED: ATORVASTATIN CALCIUM 40 MG TABLET PO SCH (22:00)
[2023-12-03] VITALS: BP 145/88
[2023-12-03 08:00] VITALS: BP 107/81
[2023-12-03] MEDS ORDERED: BISACODYL 5 MG TAB PO PRN (09:20)
[2023-12-03] MEDS ORDERED: CLOTRIMAZOLE 10 MG LOZENGE PO SCH (10:00)
[2023-12-03 12:00] VITALS: BP 141/84
[2023-12-03] MEDS ORDERED: AMOXICILLIN500 M2 PO (15:04)
[2023-12-03] MEDS ORDERED: ERTAPENEM1 GM IV (15:04)
[2023-12-03 16:00] VITALS: BP 136/80
[2023-12-03 20:00] VITALS: BP 108/68
[2023-12-04] VITALS: BP 113/67
[2023-12-04 08:00] VITALS: BP 75/53
[2023-12-04] MEDS ORDERED: AMOXICILLIN500 M2 PO (08:11)
[2023-12-04] MEDS ORDERED: ERTAPENEM1 GM IV (08:11)
[2023-12-04 12:00] VITALS: BP 110/54
[2023-12-04 16:39] VITALS: BP 110/73
[2023-12-04 20:00] VITALS: BP 113/82
[2023-12-05] VITALS: BP 100/66
[2023-12-05 08:00] VITALS: BP 95/58
[2023-12-05 12:00] VITALS: BP 117/78
[2023-12-05 16:00] VITALS: BP 136/64
[2023-12-05 20:00] VITALS: BP 108/74
[2023-12-06] VITALS: BP 120/69
[2023-12-06 06:05] LABS: BASO # 0.1 10*3/uL (0.0-0.1); BASO % 0.8 % (0.0-1.0); EOS # 0.3 10*3/uL (0.0-0.4); EOS % 5.5 % (1.0-4.0); HEMATOCRIT 31.5 % (37.0-47.0); LYMPH # 2.3 10*3/uL (1.3-4.4); MEAN CELL VOLUME 89.7 fl (81.0-99.0); MEAN CORPUSCULAR HGB 28.2 pg (27.0-31.0); MEAN CORPUSCULAR HGB CONC 31.4 g/dl (33.0-37.0); MEAN PLATELET VOLUME 9.5 fl (9.6-12.3); MONO # 0.8 10*3/uL (0.1-1.0); MONO % 13.2 % (3.0-9.0); NEUT # 2.7 10*3/uL (2.3-7.9); PLATELET COUNT AUTOMATED 430 10*3/uL (130-400); RED BLOOD COUNT 3.51 10*6/uL (4.10-5.10); WHITE BLOOD COUNT 6.2 10*3/uL (4.8-10.8)
[2023-12-06 08:00] VITALS: BP 117/76
[2023-12-06 12:00] VITALS: BP 96/66
[2023-12-06 16:00] VITALS: BP 126/83
[2023-12-06 20:00] VITALS: BP 113/60
[2023-12-07] VITALS: BP 99/69
[2023-12-07 08:00] VITALS: BP 134/86
[2023-12-07 09:39] LABS: BASO # 0.1 10*3/uL (0.0-0.1); BASO % 0.7 % (0.0-1.0); EOS # 0.2 10*3/uL (0.0-0.4); EOS % 2.8 % (1.0-4.0); HEMATOCRIT 32.7 % (37.0-47.0); LYMPH # 1.9 10*3/uL (1.3-4.4); LYMPH % 24.9 % (27.0-41.0); MEAN CELL VOLUME 91.3 fl (81.0-99.0); MEAN CORPUSCULAR HGB 29.3 pg (27.0-31.0); MEAN CORPUSCULAR HGB CONC 32.1 g/dl (33.0-37.0); MEAN PLATELET VOLUME 9.4 fl (9.6-12.3); MONO # 0.6 10*3/uL (0.1-1.0); MONO % 8.1 % (3.0-9.0); NEUT # 4.7 10*3/uL (2.3-7.9); PLATELET COUNT AUTOMATED 522 10*3/uL (130-400); RED BLOOD COUNT 3.58 10*6/uL (4.10-5.10); RED CELL DISTRI WIDTH 14.2 % (0-14.5); WHITE BLOOD COUNT 7.5 10*3/uL (4.8-10.8)
[2023-12-07] MEDS ORDERED: DOCUSATE SODIUM 100 MG CAP PO SCH (10:00)
[2023-12-07 10:05] LABS: BUN < 5 mg/dl (9-23)
[2023-12-07] MEDS ORDERED: Oxybutynin Chloride 5 MG TAB PO SCH (10:45)
[2023-12-07] MEDS ORDERED: Gadoxetate Disodium 10 ML SOL IV ONE (11:16)
[2023-12-07] MEDS ORDERED: SODIUM CHLORIDE 0.9% 50 ML IV ONE (11:17)
[2023-12-07 12:00] VITALS: BP 94/68
[2023-12-07 16:00] VITALS: BP 117/67
[2023-12-07 20:00] VITALS: BP 106/65
[2023-12-07 22:00] VITALS: BP 106/65
[2023-12-08] VITALS: BP 108/72
[2023-12-08 09:00] VITALS: BP 106/75
[2023-12-08 11:44] VITALS: BP 111/74
[2023-12-08] MEDS ORDERED: Meropenem 50 ML IV SCH (12:00)
[2023-12-08 16:00] VITALS: BP 123/79
[2023-12-08 20:00] VITALS: BP 121/85
[2023-12-08] MEDS ORDERED: clonAZEPAM 0.5 MG TAB PO PRN (23:35)
[2023-12-09] VITALS: BP 140/77
[2023-12-09 08:00] VITALS: BP 119/73
[2023-12-09] MEDS ORDERED: ERTAPENEM1 GM IV (11:07)
[2023-12-09] MEDS ORDERED: AMOXICILLIN500 M2 PO (11:07)
[2023-12-09 12:00] VITALS: BP 119/87
[2023-12-09] MEDS ORDERED: Ertapenem Sodium 1 GM in SODIUM CHLORIDE 0.9% 50 ML IV SCH (12:00)
[2023-12-09] MEDS ORDERED: OXYBUTYNIN5 MG PO (13:58)
[2023-12-09] MEDS ORDERED: NATURE'S BLEND100 M2 PO (13:58)
== END 2023-12-09 15:53 | disposition home health service (06) | DRG 682 ==
LOC: ED 07:30 → EDHOLD 11:49 → 4E 11:49
PROVIDERS: Internal Medicine; Registered Nurse; Student in an Organized Health Care Education/Training Program; ADMIT Internal Medicine; ATTEND Internal Medicine
DX: N17.0 Acute kidney failure with tubular necrosis (principal); E43 Unspecified severe protein-calorie malnutrition; N39.0 Urinary tract infection, site not specified; E87.1 Hypo-osmolality and hyponatremia; G45.1 Carotid artery syndrome (hemispheric); F10.932 Alcohol use, unspecified with withdrawal with perceptual disturbance; L03.115 Cellulitis of right lower limb; Z68.1 Body mass index [BMI] 19.9 or less, adult; L97.519 Non-pressure chronic ulcer of other part of right foot with unspecified severity; F41.9 Anxiety disorder, unspecified; I73.9 Peripheral vascular disease, unspecified; F17.200 Nicotine dependence, unspecified, uncomplicated; E87.6 Hypokalemia; E86.1 Hypovolemia; E87.8 Other disorders of electrolyte and fluid balance, not elsewhere classified; I10 Essential (primary) hypertension; R33.9 Retention of urine, unspecified; R74.8 Abnormal levels of other serum enzymes; Z80.1 Family history of malignant neoplasm of trachea, bronchus and lung; Z83.6 Family history of other diseases of the respiratory system; Z82.49 Family history of ischemic heart disease and other diseases of the circulatory system; Z79.899 Other long term (current) drug therapy

== ENCOUNTER 2024-01-18 16:44 | Emergency (ER) | payer MEDICARE, OTHER ==
[~2024-01-18 16:44] MED LIST changes: +AMOXICILLIN500 M2 PO; +ASPIRIN ADULT L81 M1 PO; +BENZTROPINE MESY1 MG PO; +ERTAPENEM1 GM IV; +NATURE'S BLEND100 M2 PO; +OXYBUTYNIN5 MG PO; +PREGABALIN100 MG PO; +REXULTI1 MG PO; +VITAMIN D3125 MC1 PO
== END 2024-01-18 18:24 | disposition left against medical advice (07) ==
LOC: ED 16:44
DX: R10.9 Unspecified abdominal pain (principal); Z53.21 Procedure and treatment not carried out due to patient leaving prior to being seen by health care provider

== ENCOUNTER 2024-03-17 20:53 | Emergency (ER) | payer MEDICARE, OTHER ==
[~2024-03-17] VITALS: Wt 50.3 kg
[2024-03-17] MEDS ORDERED: LORazepam 2 MG TAB PO ONE (21:45)
[2024-03-17 22:07] LABS: BASO # 0.1 10*3/uL (0.0-0.1); BASO % 0.8 % (0.0-1.0); EOS # 0.1 10*3/uL (0.0-0.4); EOS % 0.7 % (1.0-4.0); HEMATOCRIT 51.1 % (37.0-47.0); MEAN CELL VOLUME 87.1 fl (81.0-99.0); MEAN CORPUSCULAR HGB CONC 33.3 g/dl (33.0-37.0); MEAN PLATELET VOLUME 9.3 fl (9.6-12.3); MONO # 0.7 10*3/uL (0.1-1.0); MONO % 6.9 % (3.0-9.0); NEUT # 7.4 10*3/uL (2.3-7.9); NEUT % 73.7 % (47.0-73.0); PLATELET COUNT AUTOMATED 441 10*3/uL (130-400); RED BLOOD COUNT 5.87 10*6/uL (4.10-5.10); RED CELL DISTRI WIDTH 12.2 % (0-14.5)
[2024-03-17 22:24] LABS: CHLORIDE 96 mmol/L (98-107); POTASSIUM 3.8 mmol/L (3.4-5.1)
[2024-03-17 22:25] LABS: BUN < 5 mg/dl (9-23); ETHYL ALCOHOL < 3.0 mg/dl (<3)
== END 2024-03-17 23:24 | disposition left against medical advice (07) ==
LOC: ED 20:53
PROVIDERS: Internal Medicine
DX: F10.139 Alcohol abuse with withdrawal, unspecified (principal); D75.1 Secondary polycythemia; E87.1 Hypo-osmolality and hyponatremia; R25.1 Tremor, unspecified; R00.0 Tachycardia, unspecified; R44.3 Hallucinations, unspecified; F17.200 Nicotine dependence, unspecified, uncomplicated; Z79.899 Other long term (current) drug therapy; Z79.82 Long term (current) use of aspirin; Z98.890 Other specified postprocedural states; Z53.29 Procedure and treatment not carried out because of patient's decision for other reasons; Y90.0 Blood alcohol level of less than 20 mg/100 ml

== ENCOUNTER 2024-03-21 00:19 | Emergency (ER) | payer MEDICARE, OTHER ==
[~2024-03-21] VITALS: Ht 162.5 cm; Wt 49.9 kg
[2024-03-21 00:40] LABS: BILIRUBIN Negative (Negative); BLOOD Negative (Negative); CLARITY Clear (Clear); COLOR Yellow (Yellow); GLUCOSE Negative (Negative); KETONE Negative (Negative); LEUKO ESTERASE 3+ (Negative); NITRITE Positive (Negative); SPECIFIC GRAVITY <= 1.005 (1.001-1.030); UROBILINOGEN 0.2 E.U./dl (0.0-1.0)
[2024-03-21 00:50] LABS: BACTERIA 4+
[2024-03-21 00:56] LABS: BASO # 0.1 10*3/uL (0.0-0.1); BASO % 0.8 % (0.0-1.0); EOS # 0.1 10*3/uL (0.0-0.4); HEMATOCRIT 44.2 % (37.0-47.0); MEAN CELL VOLUME 84.4 fl (81.0-99.0); MEAN CORPUSCULAR HGB 29.4 pg (27.0-31.0); MEAN CORPUSCULAR HGB CONC 34.8 g/dl (33.0-37.0); MEAN PLATELET VOLUME 9.2 fl (9.6-12.3); MONO # 0.7 10*3/uL (0.1-1.0); NEUT # 4.4 10*3/uL (2.3-7.9); NEUT % 61.3 % (47.0-73.0); PLATELET COUNT AUTOMATED 443 10*3/uL (130-400); RED BLOOD COUNT 5.24 10*6/uL (4.10-5.10); RED CELL DISTRI WIDTH 12.4 % (0-14.5); WHITE BLOOD COUNT 7.1 10*3/uL (4.8-10.8)
[2024-03-21 01:23] LABS: URINE AMPHETAMINES Negative (1000ng/ml); URINE BARBITURATES Negative (200ng/ml); URINE BENZODIAZEPINES Negative (200ng/ml); URINE CANNABINOIDS (THC) Negative (50ng/ml); URINE COCAINE Negative (300ng/ml); URINE METHADONE Negative (300ng/ml); URINE OPIATES Negative (300ng/ml); URINE PHENCYCLIDINE Negative (25ng/ml)
[2024-03-21 01:23] LABS: ALKALINE PHOSPHATASE 159 U/L (46-116); CHLORIDE 90 mmol/L (98-107); ETHYL ALCOHOL 3.3 mg/dl (<3); POTASSIUM 3.2 mmol/L (3.4-5.1); SGPT/ALT 10 U/L (5-49); TOTAL PROTEIN 7.3 gm/dL (6.0-8.0)
[2024-03-21 01:30] LABS: BUN < 5 mg/dl (9-23)
[2024-03-21] MEDS ORDERED: LORazepam 1 MG TAB PO ONE (03:15)
[2024-03-21] MEDS ORDERED: Ciprofloxacin Hydrochloride 500 MG TAB PO ONE (03:15)
[2024-03-21] MEDS ORDERED: Ondansetron Hydrochloride 4 MG/2 ML VIAL IV ONE (10:50)
== END 2024-03-21 15:32 ==
LOC: ED 00:19
PROVIDERS: Internal Medicine
DX: F43.21 Adjustment disorder with depressed mood (principal); I10 Essential (primary) hypertension; F41.9 Anxiety disorder, unspecified; F10.10 Alcohol abuse, uncomplicated; F17.200 Nicotine dependence, unspecified, uncomplicated; Z98.890 Other specified postprocedural states; Z79.899 Other long term (current) drug therapy